=== PATIENT | male | born 1955 | race Caucasian/White ===

== ENCOUNTER → 2016-11-22 | Outpatient (CLI) | payer OTHER ==
[~2016-11-22] MED LIST: CHINESE HERBS PO; CHOL2000 PO; CYAN1TAB29 PO; MULT-6 PO; OMEG1CAP34 PO; SAW PALMETTO PO; UBID200C4 PO
== END | disposition home or self-care (01) ==
LOC: CFH 12:47
PROVIDERS: ATTEND Family Medicine
DX: N50.3 Cyst of epididymis (principal); N50.89 Other specified disorders of the male genital organs
CPT/HCPCS: 76870

== ENCOUNTER → 2019-07-15 | Outpatient (CLI) | payer OTHER ==
[~2019-07-15] MED LIST changes: -UBID200C4 PO; +UBID200C7 PO
== END | disposition home or self-care (01) ==
LOC: CFH 10:24
PROVIDERS: ATTEND Nurse Practitioner
DX: N50.3 Cyst of epididymis (principal)
CPT/HCPCS: 76870; 93975

== ENCOUNTER 2020-05-18 18:03 | Emergency (ER) | payer OTHER ==
[~2020-05-18] VITALS: Ht 172.7 cm; Wt 57.4 kg
[2020-05-18 18:59] VITALS: BP 124/75
[2020-05-18] MEDS ORDERED: DIPH,PERTUSS(ACELL),TET VAC/PF 0.5 ML IM-VACC ONE ×2 (19:30→20:10)
[2020-05-18] MEDS ORDERED: LIDOCAINE-MPF 1%, 5ML INFIL ONE (19:30)
[2020-05-18] MEDS ORDERED: LIDOCAINE-MPF 1%, 5ML ONE (19:54)
--- NOTE | 2020-05-18 20:01 | NUR ---
PA in room to suture finger
== END 2020-05-18 20:31 | disposition home or self-care (01) ==
LOC: ED 20:00
DX: S61.211A Laceration without foreign body of left index finger without damage to nail, initial encounter (principal); W26.0XXA Contact with knife, initial encounter; Y93.G3 Activity, cooking and baking; Y92.009 Unspecified place in unspecified non-institutional (private) residence as the place of occurrence of the external cause; Y99.8 Other external cause status
CPT/HCPCS: 12041; 90471; 90715; 99284